=== PATIENT | male | born 1945 | race Caucasian/White ===

== ENCOUNTER 2018-02-23 13:49 | Outpatient (CLI) | payer MEDICARE, OTHER ==
--- NOTE | 2018-02-23 15:26 | XRAY Report ---
TWO VIEW CHEST: 02/23/2018 CLINICAL INDICATION: Cough, shortness of breath. COMPARISON: 05/14/2016. FINDINGS: Frontal and lateral views of the chest demonstrate changes of previous cardiac surgery. The lungs are hyperinflated, but clear. No effusion or pneumothorax is present. IMPRESSION: POSTOPERATIVE CHANGES. NO EVIDENCE OF ACUTE CARDIOPULMONARY DISEASE. TD: 02/23/2018 15:24
== END 2018-02-23 13:50 | disposition home or self-care (01) ==
LOC: DI.S 13:49
PROVIDERS: ATTEND Nurse Practitioner Family
DX: R05 Cough (principal); R06.02 Shortness of breath
CPT/HCPCS: 71046

== ENCOUNTER 2020-10-18 10:45 | Outpatient (CLI) | payer MEDICARE, OTHER ==
[2020-10-18 14:51] LABS: PT - PROTHROMBIN TIME 49.1 secs (9.9-12.6)
[2020-10-18 15:03] LABS: INR 4.8 (0.8-1.2)
== END 2020-10-18 10:46 | disposition home or self-care (01) ==
LOC: LAB.S 10:45
PROVIDERS: ATTEND Family Medicine
DX: Z95.2 Presence of prosthetic heart valve (principal)
CPT/HCPCS: 36415; 85610

== ENCOUNTER 2020-10-19 10:29 | Outpatient (CLI) | payer MEDICARE, OTHER ==
[2020-10-19 15:04] LABS: INR 3.6 (0.8-1.2); PT - PROTHROMBIN TIME 37.1 secs (9.9-12.6)
== END 2020-10-19 10:30 | disposition home or self-care (01) ==
LOC: LAB.S 10:29
PROVIDERS: ATTEND Family Medicine
DX: Z95.2 Presence of prosthetic heart valve (principal)
CPT/HCPCS: 36415; 85610

== ENCOUNTER 2020-10-20 10:54 | Outpatient (CLI) | payer MEDICARE, OTHER ==
[2020-10-20 16:53] LABS: INR 2.9 (0.8-1.2); PT - PROTHROMBIN TIME 30.3 secs (9.9-12.6)
== END 2020-10-20 10:55 | disposition home or self-care (01) ==
LOC: LAB.S 10:54
PROVIDERS: ATTEND Family Medicine
DX: Z95.2 Presence of prosthetic heart valve (principal)
CPT/HCPCS: 36415; 85610

== ENCOUNTER 2020-10-25 10:19 | Outpatient (CLI) | payer MEDICARE, OTHER ==
[2020-10-25 11:00] LABS: PT - PROTHROMBIN TIME 90.6 secs (9.9-12.6)
[2020-10-25 11:42] LABS: INR 9.3 (0.8-1.2)
== END 2020-10-25 10:20 | disposition home or self-care (01) ==
LOC: LAB 10:19
PROVIDERS: ATTEND Family Medicine
DX: Z95.2 Presence of prosthetic heart valve (principal)
CPT/HCPCS: 36415; 85610

== ENCOUNTER 2020-10-27 10:12 | Outpatient (CLI) | payer MEDICARE, OTHER | END 2020-10-27 10:13 | disposition home or self-care (01) | LOC: LAB 10:12 | PROVIDERS: ATTEND Family Medicine | DX: Z95.2 Presence of prosthetic heart valve (principal) | CPT/HCPCS: 85610 ==

== ENCOUNTER 2020-10-30 10:44 | Outpatient (CLI) | payer MEDICARE, OTHER | END 2020-10-30 10:45 | disposition home or self-care (01) | LOC: LAB.S 10:44 | PROVIDERS: ATTEND Family Medicine | DX: Z95.2 Presence of prosthetic heart valve (principal) | CPT/HCPCS: 85610 ==

== ENCOUNTER 2020-11-02 10:59 | Outpatient (CLI) | payer MEDICARE, OTHER | END 2020-11-02 11:00 | disposition home or self-care (01) | LOC: LAB.S 10:59 | PROVIDERS: ATTEND Family Medicine | DX: Z95.2 Presence of prosthetic heart valve (principal) | CPT/HCPCS: 85610 ==

== ENCOUNTER 2020-11-06 11:08 | Outpatient (CLI) | payer MEDICARE, OTHER | END 2020-11-06 11:09 | disposition home or self-care (01) | LOC: LAB.S 11:08 | PROVIDERS: ATTEND Family Medicine | DX: Z95.2 Presence of prosthetic heart valve (principal) | CPT/HCPCS: 85610 ==

== ENCOUNTER 2020-11-10 11:10 | Outpatient (CLI) | payer MEDICARE, OTHER | END 2020-11-10 11:11 | disposition home or self-care (01) | LOC: LAB.S 11:10 | PROVIDERS: ATTEND Family Medicine | DX: Z95.2 Presence of prosthetic heart valve (principal) | CPT/HCPCS: 85610 ==

== ENCOUNTER 2020-11-17 11:17 | Outpatient (CLI) | payer MEDICARE, OTHER | END 2020-11-17 11:18 | disposition home or self-care (01) | LOC: LAB.S 11:17 | PROVIDERS: ATTEND Family Medicine | DX: Z95.2 Presence of prosthetic heart valve (principal) | CPT/HCPCS: 85610 ==

== ENCOUNTER 2020-11-22 12:00 | Outpatient (CLI) | payer MEDICARE, OTHER | END 2020-11-22 12:01 | disposition home or self-care (01) | LOC: LAB.S 12:00 | PROVIDERS: ATTEND Family Medicine | DX: Z95.2 Presence of prosthetic heart valve (principal) | CPT/HCPCS: 85610 ==

== ENCOUNTER 2020-11-27 11:55 | Outpatient (CLI) | payer MEDICARE, OTHER | END 2020-11-27 11:56 | disposition home or self-care (01) | LOC: LAB.S 11:55 | PROVIDERS: ATTEND Family Medicine | DX: Z95.2 Presence of prosthetic heart valve (principal) | CPT/HCPCS: 85610 ==

== ENCOUNTER 2020-11-30 12:09 | Outpatient (CLI) | payer MEDICARE, OTHER | END 2020-11-30 12:10 | disposition home or self-care (01) | LOC: LAB.S 12:09 | PROVIDERS: ATTEND Family Medicine | DX: Z95.2 Presence of prosthetic heart valve (principal) | CPT/HCPCS: 85610 ==

== ENCOUNTER 2020-12-04 11:44 | Outpatient (CLI) | payer MEDICARE, OTHER | END 2020-12-04 11:45 | disposition home or self-care (01) | LOC: LAB.S 11:44 | PROVIDERS: ATTEND Family Medicine | DX: Z95.2 Presence of prosthetic heart valve (principal) | CPT/HCPCS: 85610 ==

== ENCOUNTER 2020-12-11 13:00 | Outpatient (CLI) | payer MEDICARE, OTHER | END 2020-12-11 13:01 | disposition home or self-care (01) | LOC: LAB.S 13:00 | PROVIDERS: ATTEND Family Medicine | DX: Z95.2 Presence of prosthetic heart valve (principal) | CPT/HCPCS: 85610 ==

== ENCOUNTER 2020-12-18 11:49 | Outpatient (CLI) | payer MEDICARE, OTHER | END 2020-12-18 11:50 | disposition home or self-care (01) | LOC: LAB.S 11:49 | PROVIDERS: ATTEND Family Medicine | DX: Z95.2 Presence of prosthetic heart valve (principal) | CPT/HCPCS: 85610 ==

== ENCOUNTER 2020-12-25 12:44 | Outpatient (CLI) | payer MEDICARE, OTHER | END 2020-12-25 12:45 | disposition home or self-care (01) | LOC: LAB.S 12:44 | PROVIDERS: ATTEND Family Medicine | DX: Z95.2 Presence of prosthetic heart valve (principal) | CPT/HCPCS: 85610 ==

== ENCOUNTER 2021-01-02 10:42 | Outpatient (CLI) | payer MEDICARE, OTHER | END 2021-01-02 10:43 | disposition home or self-care (01) | LOC: LAB.S 10:42 | PROVIDERS: ATTEND Family Medicine | DX: Z95.2 Presence of prosthetic heart valve (principal) | CPT/HCPCS: 85610 ==

== ENCOUNTER 2021-01-09 10:37 | Outpatient (CLI) | payer MEDICARE, OTHER | END 2021-01-09 10:38 | disposition home or self-care (01) | LOC: LAB.S 10:37 | PROVIDERS: ATTEND Family Medicine | DX: Z95.2 Presence of prosthetic heart valve (principal) | CPT/HCPCS: 85610 ==

== ENCOUNTER 2021-01-16 18:36 | Outpatient (CLI) | payer MEDICARE, OTHER | END 2021-01-16 18:37 | disposition E | LOC: EMS 18:36 ==